=== PATIENT | female | born 1975 ===

== ENCOUNTER 2017-08-18 13:46 | Emergency (ER) | payer OTHER ==
[2017-08-18] MEDS ORDERED: Albuterol 0.083% Inhal Sol (2.5 mg/3 mL) UD INH STA ×2 (15:08→16:36)
[2017-08-18] MEDS ORDERED: Albuterol-Ipratrop 3 mg / 0.5 (3 ml) UD IH STA (15:08)
[2017-08-18] MEDS ORDERED: Albuterol-Ipratrop 3 mg / 0.5 (3 ml) UD ONE (15:47)
[2017-08-18] MEDS ORDERED: Albuterol 0.083% Inhal Sol (2.5 mg/3 mL) UD ONE ×2 (15:47→16:53)
--- NOTE | 2017-08-18 16:13 | C.PDOC ---
History Of Present Illness 41 year old female presents to the ED with 3 day history of SOB and wheezing. No fever. Patient reports history of asthma when she was younger, but has not used an inhaler or home nebulizer for years. Time Seen by Provider: 08/18/17 14:18 Chief Complaint (Nursing): Shortness Of Breath History Per: Patient History/Exam Limitations: no limitations Onset/Duration Of Symptoms: Days (x3) Current Symptoms Are (Timing): Still Present Past Medical History Reviewed: Historical Data, Nursing Documentation, Vital Signs Vital Signs: Last Vital Signs Temp 99.1 F 08/18/17 17:21 Pulse 107 H 08/18/17 17:21 Resp 17 08/18/17 17:21 BP 125/73 08/18/17 17:21 Pulse Ox 96 08/18/17 17:38 - Medical History PMH: Asthma Other Surgeries: Tubal ligation Family History: States: No Known Family Hx - Social History Hx Tobacco Use: No Hx Alcohol Use: No Hx Substance Use: No - Immunization History Hx Tetanus Toxoid Vaccination: No Hx Influenza Vaccination: No Hx Pneumococcal Vaccination: No Review Of Systems Except As Marked, All Systems Reviewed And Found Negative. Constitutional: Negative for: Fever, Chills ENT: Negative for: Nose Congestion, Throat Pain Respiratory: Positive for: Shortness of Breath, Wheezing. Negative for: Cough Physical Exam - Physical Exam Appears: Non-toxic, No Acute Distress Skin: Normal Color, Warm, Dry Head: Atraumatic, Normacephalic Eye(s): bilateral: Normal Inspection, PERRL, EOMI Nose: Normal Oral Mucosa: Moist Neck: Normal ROM, Supple Chest: Symmetrical Cardiovascular: Rhythm Regular, No Murmur Respiratory: No Accessory Muscle Use, Wheezing (bilaterally), No Other ( respiratory distress) Neurological/Psych: Oriented x3, Normal Speech ED Course And Treatment O2 Sat by Pulse Oximetry: 96 (RA) Pulse Ox Interpretation: Normal - Other Rad CXR X-Ray: Viewed By Me, Read By Radiologist Interpretation: FINDINGS: LUNGS: No active pulmonary disease. PLEURA: No significant pleural effusion identified. No pneumothorax apparent. CARDIOVASCULAR: Normal. OSSEOUS STRUCTURES: No significant abnormalities. VISUALIZED UPPER ABDOMEN: Normal. OTHER FINDINGS: None. IMPRESSION: No active disease. Progress Note: Given duoneb and albuterol treatments, also given prednisone PO. CXR is normal. On reevaluation, patient reports improvement. Lungs are clear to auscultation. Patient is stable for discharge home Disposition Counseled Patient/Family Regarding: Studies Performed, Diagnosis, Need For Followup, Rx Given - Disposition Referrals: [facility] [Outside] Disposition: HOME/ ROUTINE Disposition Time: 17:34 Condition: STABLE Additional Instructions: Follow up with PMD/Clinic within 1-2 days. Return to ED if feel worse. Prescriptions: predniSONE [predniSONE Tab] 2 tab PO DAILY #8 tab Benzonatate [Tessalon Perles] 2 tab PO TID #60 sgl Albuterol HFA [Ventolin HFA 90 mcg/actuation (8 g)] 1 puff IH .Q4-6H #1 inhaler Azithromycin [Zithromax] 250 mg PO DAILY #6 tab Instructions: Asthma in Adults, Acute Bronchitis Forms: [facility] (Scottish) - Clinical Impression Clinical Impression: Acute bronchitis with bronchospasm - PA / CARE ASSOCIATE / Resident Statement MD/DO has reviewed & agrees with the documentation as recorded. - Scribe Statement The provider has reviewed the documentation as recorded by the Scribe (uLciana Perez) All medical record entries made by the Scribe were at my direction and personally dictated by me. I have reviewed the chart and agree that the record accurately reflects my personal performance of the history, physical exam, medical decision making, and the department course for this patient. I have also personally directed, reviewed, and agree with the discharge instructions and disposition.
--- NOTE | 2017-08-18 16:22 | RAD ---
HISTORY: cough/wheezing COMPARISON: No prior. TECHNIQUE: Chest PA and lateral FINDINGS: LUNGS: No active pulmonary disease. PLEURA: No significant pleural effusion identified. No pneumothorax apparent. CARDIOVASCULAR: Normal. OSSEOUS STRUCTURES: No significant abnormalities. VISUALIZED UPPER ABDOMEN: Normal. OTHER FINDINGS: None. IMPRESSION: No active disease.
[2017-08-18 17:22] VITALS: BP 125/73; PULSE 107; RESP 17; TEMP 99.1
[2017-08-18 17:38] VITALS: O2SAT 96
== END 2017-08-18 17:53 | disposition home or self-care (01) ==
LOC: C.ER 13:46
DX: J20.9 Acute bronchitis, unspecified (principal)

== ENCOUNTER 2018-10-19 09:33 | Emergency (ER) | payer SELFPAY ==
[2018-10-19 09:41] VITALS: BMI 21.6
[2018-10-19 09:43] VITALS: BP 105/70; PULSE 72; RESP 18; TEMP 98.5; O2SAT 98
--- NOTE | 2018-10-19 10:40 | C.PDOC ---
History Of Present Illness 43 year old female presents to ED with complaint of vaginal discomfort and dyspareunia. Patient states that when she looked in the mirror she thought she saw some fleshy protuberance. She denies any new sexual partners. She denies vaginal bleeding, vaginal discharge, pelvic pain, fever, or chills. Time Seen by Provider: 10/19/18 10:31 Chief Complaint (Nursing): Female Genitourinary History Per: Patient History/Exam Limitations: no limitations Onset/Duration Of Symptoms: Unknown Current Symptoms Are (Timing): Still Present Quality Of Discomfort: "Pain" Associated Symptoms: denies: Fever, Chills, Back Pain, Urinary Symptoms Abnormal Vaginal Bleeding: No Past Medical History Reviewed: Historical Data, Nursing Documentation, Vital Signs Vital Signs: Last Vital Signs Temp 98.5 F 10/19/18 09:41 Pulse 72 10/19/18 09:41 Resp 18 10/19/18 09:41 BP 105/70 10/19/18 09:41 Pulse Ox 98 10/19/18 09:41 Primary Care Provider: FAMILY PROVIDER,NO - Medical History PMH: Asthma Surgical History: No Surg Hx Family History: States: Unknown Family Hx - Social History Hx Tobacco Use: No Hx Alcohol Use: No Hx Substance Use: No - Immunization History Hx Tetanus Toxoid Vaccination: No Hx Influenza Vaccination: No Hx Pneumococcal Vaccination: No Review Of Systems Constitutional: Negative for: Fever, Chills Gastrointestinal: Negative for: Abdominal Pain Genitourinary: Positive for: Other (vaginal discomfort and dyspareunia). Negative for: Dysuria, Hematuria, Vaginal Discharge, Vaginal Bleeding Musculoskeletal: Negative for: Back Pain Skin: Negative for: Rash Physical Exam - Physical Exam Appears: Well, Non-toxic, No Acute Distress Skin: Normal Color, Warm, Dry Head: Atraumatic, Normacephalic Neck: Normal ROM, Supple Chest: Symmetrical, No Deformity Gastrointestinal/Abdominal: Soft, No Tenderness Pelvic: No Vaginal Discharge, No Mass, Other (chaperoned by ANTHONY Jackson; no foul smell; cervix without lesions) Extremity: Capillary Refill (<2 seconds) Neurological/Psych: Oriented x3, Normal Speech, Normal Cognition ED Course And Treatment O2 Sat by Pulse Oximetry: 98 (in RA) Pulse Ox Interpretation: Normal Progress Note: Chlamydia/GC ordered for patient. Patient is resting comfortably, in no acute distress and stable for discharge. Patient advised to follow up with clinic. Patient advised to return to ED if symptoms persist or worsen. Medical Decision Making Medical Decision Making: normal femal exam no FB/masses/prolapse Disposition Doctor Will See Patient In The: Office Counseled Patient/Family Regarding: Studies Performed, Diagnosis - Disposition Referrals: [facility] [Outside] [facility] ([place]) [facility] [Outside] [facility] [Outside] [facility] [Outside] Disposition: HOME/ ROUTINE Disposition Time: 10:39 Condition: GOOD Additional Instructions: examen vaginal NORMAL hoy GC/Chlamydia examanes fueron mandado al laboratorio Si sale positivo, te llamamos Sigue con coker gynocologo argelia normal Instructions: Vaginal Discharge in Adults Forms: [facility] (Czech) Print Language: BENGALI - Clinical Impression Clinical Impression: Vaginal discomfort - Scribe Statement The provider has reviewed the documentation as recorded by the Scribe (Vivienne Baird) All medical record entries made by the Scribe were at my direction and personally dictated by me. I have reviewed the chart and agree that the record accurately reflects my personal performance of the history, physical exam, medical decision making, and the department course for this patient. I have also personally directed, reviewed, and agree with the discharge instructions and disposition.
== END 2018-10-19 10:49 | disposition home or self-care (01) ==
LOC: C.ER 09:33
DX: R10.2 Pelvic and perineal pain (principal)